=== PATIENT | male | born 1965 | race Caucasian/White ===

== ENCOUNTER 2017-02-25 15:16 | Emergency (ER) | payer OTHER ==
[~2017-02-25] VITALS: Ht 182.9 cm; Wt 110.0 kg
[~2017-02-25 15:16] MED LIST: FLUT1SPR5 EACH NARE; MULTTAB50; VITA100017 PO; VITA250L PO
[2017-02-25 15:27] VITALS: BP 151/85; PULSE 66; RESP 16; TEMP 97.8; O2SAT 96
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
== END 2017-02-25 16:25 | disposition home or self-care (01) ==
LOC: PHEFT 15:16
DX: S00.83XA Contusion of other part of head, initial encounter (principal); Y04.2XXA Assault by strike against or bumped into by another person, initial encounter
CPT/HCPCS: 70486